=== PATIENT | male | born 1945 | race Caucasian/White ===

== ENCOUNTER → 2016-04-28 | Outpatient (CLI) | payer MEDICARE, OTHER ==
[~2016-04-28] MED LIST: DESL1TBM2 PO; HYDR-3811 PO; [UNRECOGNIZED DRUG - CODE] PO
--- NOTE | 2016-04-28 18:35 | Diagnostic Imaging Report ---
PROCEDURE: MRI lumbar spine with and without contrast. TECHNIQUE: Multiplanar, multisequence MRI of the lumbar spine was performed with and without contrast. DATE: April 28, 2016. COMPARISON: None. INDICATION: A 70-year-old male, back pain. Evaluation for compression fracture. FINDINGS: The anterior to posterior alignment of the lumbar spine is grossly unremarkable. There is a mild lumbar levocurvature. There is no identified compression fracture. There is severe disc height loss at L1-L2. There is jiqbgfeq-zc-[id number] disc height loss at L2-L3. There is mild disc height loss at L3-L4. There is moderate disc height loss at L4-L5 and L5-S1. There are multilevel endplate degenerative related marrow changes. There are mild disc degenerative changes of the visualized lower thoracic spine. There is no identified pars interarticularis defect. The visualized cord and conus medullaris is unremarkable and terminates at the L1 level. There is an exophytic T2 hyperintense lesion arising from the inferior pole of the left kidney measuring 1.9 cm in size. There is an additional T2 hyperintense left renal lesion on axial image 3 measuring up to 1.2 cm in size and a partially visualized exophytic left renal lesion on the same image measuring 1.3 cm in size. The right kidney is not identified in its expected position and may be ectopically positioned or absent. L1-L2: There is mild diffuse disc bulge. The facet joints and ligamentum flavum are unremarkable. There is mild right foraminal narrowing. There is no spinal canal stenosis. L2-L3: There is mild diffuse disc bulge. The facet joints and ligamentum flavum are unremarkable. There is mild bilateral foraminal narrowing. There is no spinal canal stenosis. L3-L4: There is mild diffuse disc bulge. The facet joints and ligamentum flavum are unremarkable. There is moderate right and mild left foraminal narrowing. There is no spinal canal stenosis. L4-L5: There is an annular tear and right paracentral disc protrusion superimposed on mild generalized diffuse disc bulge. There are mild bilateral facet degenerative changes without prominent ligamentum flavum hypertrophy. There is moderate bilateral foraminal narrowing. There is no high-grade spinal canal stenosis. L5-S1: There is minimal diffuse disc bulge. The facet joints and ligamentum flavum are unremarkable. There is no foraminal narrowing. There is no spinal canal stenosis. IMPRESSION: 1. No identified compression deformity. 2. Multilevel disc and facet degenerative changes of the lumbar spine as described above. Dictated by: Dictated on workstation # [id number]
== END ==
LOC: RAD 15:41
PROVIDERS: ATTEND Family Medicine
DX: M48.56XA Collapsed vertebra, not elsewhere classified, lumbar region, initial encounter for fracture (principal); M54.5 Low back pain
CPT/HCPCS: 72158; A9579

== ENCOUNTER 2016-06-11 11:30 | Outpatient (RCR) | payer MEDICARE, OTHER ==
--- NOTE | 2016-05-06 10:31 | PT/OT/ST INITIAL EVALUATION ---
Department of Health and Human Services Form Approved [facility] Care Financing Administration OMB No. [id number] PLAN OF CARE/ASSESSMENT FOR OUTPATIENT REHABILITATION (Complete for Initial Claims Only) 1. LAST NAME Antonio FIRST NAME Don Brunson 2. ACC # [id number] 3. [facility] [id number] 4. PROVIDER NO. [id number] 5. TYPE: X PT 6. PRIOR HOSPITALIZATION NA 7. PRIMARY DX Low back pain 8. SECONDARY DX Decreased coordination and weakness 9. ONSET DATE 2005 10 REFERRAL DATE 04/24/2016 11. SOC. DATE 05/05/2016 12:10 p.m. to 12:59 p.m. 12. REFERRING PHYSICIAN Juan Daniel Loving MD 13. CHARGES PT evaluation low complexity 13130 Therapeutic exercise 32665, 2 units 14. G CODES The Oswestry rates the patient as [id number]-[id number] 24% limited and the goal is H0579-US 0% limited in order to be able to sleep more than 2 hours at night and to be able to squat with proper mechanics at work for work duties without deviation. 15. PRIOR LEVEL OF FUNCTION; PERTINENT HISTORY (Prior therapy results, reason for referral.) S: Prior to therapy the patient consented to today's evaluation and treatment. The patient is a 70-year-old male referred to physical therapy by Dr. Loving to address functional limitations secondary to low back pain. Mechanism of injury: The patient reports that there was not a specific injury and that this has been going for several years. He had an MRI in 2005, which stated he had arthritis at L4 and 5. Primary complaint: The patient reports he has back pain. The pain prevents him from sleeping a lot at night and he has to take Lortab. The patient feels unsteady going up and down steps. Occupational and social history: The patient works in maintenance at [employer]. 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 Functional performance/Prior level of function: The patient is able to perform his duties at work. He has more trouble with prolonged inactivity or sitting, standing for long periods of time, and trying to sleep. The patient rates the current pain level as 5 to 6/10 all the time and the pain is constant. The patient describes the pain in his back as a "vice-like" pain and it is not sharp. Obstacles to delivery of care: None noted. Aggravating factors include prolonged standing, inactivity, sleeping and sitting. Relieving factors taking Lortab at night. He does not take Lortab during the day. Diagnostic testing: The patient had x-rays recently and MRI also performed recently. He states there was no compression fracture and there was only arthritis in his back. 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 Past surgical history: Right kidney has been removed due to a non-cancerous tumor and prostate removed in 2015, which was cancerous. Current medications: Ibuprofen as needed, Lortab 2 per day taken at night, medicated cream for his back, Claritan, Diltiazem HCl ER, Atorvastatin, 81 mg aspirin and a blood pressure medication that he does not remember the name of. Leisure activities: The patient has a treadmill and walks 1 mile per day 7 days a week after work. He does 15 sit-ups, 15 toe touches, and some stretches for his right foot. Activity level: Not listed, but based upon what the patient has reported, would list it as moderate to high. Health rating: Listed as good. The patient's goal for physical therapy includes lowering pain. 16. INITIAL ASSESSMENT/SAFETY PRECAUTIONS/MEDICAL COMPLICATIONS (Level of function at start of care. Be specific, use objective measures, list problems.) O: APPEARANCE, OBSERVATION AND GAIT: The patient lives in a split-level home with his , so he has to go up and down steps, both at work and at home. The patient reports he has numbness and tingling of his left foot. No numbness or tingling of his left leg. The patient reports that he holds on to a railing or the wall for support when going up and down steps and when he is in new environments. He has trouble with not being able to lift his left foot up and has to be careful about that. The patient only sleeps about 1 to 2 hours at a time. The patient is able to move well in all ranges of lumbar range of motion, however, does demonstrate considerable weakness of his lower extremities with hip manual muscle testing and knee manual muscle testing, especially of the left lower extremity. PALPATION: No significant tenderness to palpation is noted. SPECIAL TESTS: None RANGE OF MOTION/FLEXIBILITY: Lumbar active range of motion flexion, extension, and bilateral side bending and bilateral rotation all 100% of the range within functional limits. No significant pain noted with motion. STRENGTH: Manual muscle testing of the hips flexion left 3+/5, right 4/5. Abduction left 4/5, right 4/5, extension bilateral 4/5. Knee manual muscle testing flexion left 3+/5, right 4-/5. Knee extension left 4/5, right 4/5. Ankle plantar flexion bilateral 4/5. Ankle dorsiflexion left 3+/5, right 4/5. TODAY'S TREATMENT: Included the initial PT evaluation followed by therapeutic exercise with handouts for home exercise program. 17. INITIAL POC: (Specify procedures, modalities, short and emt intermediate goals) A: The patient presents with the diagnosis of low back pain with functional limitations of decreased coordination and weakness. The patient would benefit from physical therapy in order to improve motor control and motor planning and improve the mechanics with activities such as lifting, squatting for improved posture and decreased pain with activities. The patient would also benefit from improving core muscles and postural control muscles in order to help with sitting and standing so that he is able to do those activities for longer periods of time without having to change positions. The patient would benefit from education in flexibility and posture to help with sleeping so that he can get more than 1 to 2 hours of sleep at one given time in order to help decrease pain medication at night. PROGNOSIS: The patient has a good prognosis for increased overall functional capacity with regular therapy attendance and compliance with prescribed home exercise program. CONTRAINDICATIONS, PRECAUTIONS AND OBSTACLES TO TREATMENT: The patient has a history of prostate cancer, which was removed in 2014, so we would not be doing ultrasound on the patient's low back. The patient does have 1 kidney. His other kidney had been removed due to a non-cancerous tumor. GOALS: 1. The patient was rated by the Oswestry as P2326-CS 24% limited and the goal is M2130-XV 0% limited in order to be able to squat without deviation for performing work duties and be able to sleep for more than 2 hours at night. 2. The patient is to have a decreased of pain in the low back to less than or equal to 2/10 in 6 weeks in order to be able to sleep more than 2 hours at once and be able to sit for 1 hour without deviation. 3. The patient is to have an increase in manual muscle testing of his hips and core to 4+/5 in 6 weeks in order to be able to go up and down steps without deviation and be able to squat and lift items for work without deviation. 4. The patient is to be independent with a progressive home exercise program. The prognosis and goals were discussed with the patient, as well as the expected outcomes and possible risks. The patient agreed to undergo PT evaluation and further treatment. P: Plan to treat this patient 2 times a week for 6 weeks. Treatment to include modalities for pain and inflammation, manual therapy interventions, therapeutic exercise, active and passive range of motion, gait training, balance training, neuro reeducation and patient education and prescription of progressive home exercise program as tolerable. 18. FREQUENCY 2 times a week 19. DURATION 6 weeks 20. FUNCTIONAL LEVEL (End of claim period) 21. PHYSICIAN SIGNATURE ? ON FILE OR ENTER HERE: 22. DATE: I certify the need for these services furnished under this plan of care and if for partial hospitalization. 22. CERTIFICATION FROM THROUGH FORM [id number]
== END 2016-07-14 10:21 | disposition hospice, inpatient (51) ==
LOC: PT 11:30
PROVIDERS: ATTEND Family Medicine
DX: M54.5 Low back pain (principal); R27.9 Unspecified lack of coordination; R29.898 Other symptoms and signs involving the musculoskeletal system
CPT/HCPCS: 97110; 97112; 97161; G8978; G8979